=== PATIENT | female | born 1980 | race Caucasian/White ===

== ENCOUNTER 2017-01-12 | Emergency (ER) | payer OTHER | END 2017-01-13 00:16 | disposition left against medical advice (07) | DX: Z53.21 Procedure and treatment not carried out due to patient leaving prior to being seen by health care provider (principal) ==

== ENCOUNTER 2017-01-13 03:01 | Emergency (ER) | payer OTHER | END 2017-01-13 05:40 | disposition home or self-care (01) | LOC: ER1 03:01 | DX: L42 Pityriasis rosea (principal); L29.9 Pruritus, unspecified | CPT/HCPCS: 96372; 99282; J1100; Q0163 ==

== ENCOUNTER 2021-09-15 22:25 | Emergency (ER) | payer OTHER ==
[~2021-09-15 22:25] MED LIST: ASPIRIN CHEWABL81 MG PO
[2021-09-15 23:19] LABS: HEMOGLOBIN 13.7 gm/dl (12.3-15.3); RED BLOOD COUNT 4.68 M/UL (4.00-5.10)
[2021-09-15 23:50] LABS: BUN/CREATININE RATIO 19 (0-10)
[2021-09-16] MEDS ORDERED: LACTULOSE20 GM/30 M PO (02:06)
[2021-09-18 06:12] LABS: HBSAG SCREEN Negative (Negative); HEP A AB, IGM Negative (Negative); HEP B CORE AB, IGM Negative (Negative); HEP C VIRUS AB >11.0 (0.0-0.9)
== END 2021-09-16 02:45 | disposition home or self-care (01) ==
LOC: ER1 22:25
PROVIDERS: Family Medicine
DX: K59.00 Constipation, unspecified (principal); R07.89 Other chest pain; F17.210 Nicotine dependence, cigarettes, uncomplicated; F19.20 Other psychoactive substance dependence, uncomplicated; R74.01 Elevation of levels of liver transaminase levels
CPT/HCPCS: 71045; 80053; 80074; 81001; 82550; 82553; 83690; 83874; 84484; 85025; 85610; 87081; 87880; 93005; 99285; J7030; Q9967